=== PATIENT | female | born 1950 | race Caucasian/White ===

== ENCOUNTER 2018-05-25 16:21 | Emergency (ER) | payer MEDICARE, OTHER ==
[2018-05-25 17:05] LABS: BASOPHILS % (AUTO) 1.3 % (0.0-5.0); EOSINOPHILS % (AUTO) 0.6 % (0.0-8.0); HEMATOCRIT 39.3 % (36-48); LYMPHOCYTES % (AUTO) 34.2 % (21.0-51.0); MEAN CORPUSCULAR HEMOGLOBIN 31.1 pg (27.0-33.0); MEAN CORPUSCULAR HGB CONC 34.3 g/dL (32.0-36.0); MEAN CORPUSCULAR VOLUME 90.7 fL (79-99); MONOCYTES % (AUTO) 9.8 % (3.0-13.0); NEUTROPHILS % (AUTO) 54.1 % (40.0-77.0); PLATELET COUNT (AUTO) 221 K/uL (130-400); RED BLOOD CELL COUNT(AUTO) 4.33 MIL/uL (4.00-5.50); RED CELL DISTRIBUTION WIDTH 12.9 % (11.0-15.5); WHITE BLOOD COUNT (AUTO) 7.4 K/uL (4.8-10.8)
[2018-05-25 17:24] LABS: CREATININE 0.9 mg/dL (0.5-1.5); POTASSIUM 4.4 mmol/L (3.5-5.1)
[2018-05-25 17:27] LABS: INR 0.95 (0.85-1.15); PARTIAL THROMBOPLASTIN TIME 25.9 SEC (26.3-35.5)
[2018-05-25 17:29] LABS: ALBUMIN 4.1 g/dL (3.5-5.0); BILIRUBIN,TOTAL 0.3 mg/dL (0.2-1.0); TOTAL PROTEIN, SERUM 7.9 g/dL (6.0-8.3)
[2018-05-25 17:59] LABS: CREATINE KINASE, TOTAL 116 U/L (21-232); MYOGLOBIN 37 ng/mL (10-92); TROPONIN I < 0.04 ng/mL (0.00-0.06)
== END 2018-05-25 18:20 | disposition home or self-care (01) ==
LOC: EDH 16:21
DX: R07.89 Other chest pain (principal); E78.5 Hyperlipidemia, unspecified; F41.9 Anxiety disorder, unspecified; Z88.0 Allergy status to penicillin
CPT/HCPCS: 36415; 71045; 80053; 82550; 83874; 84484; 85025; 85610; 85730; 93005

== ENCOUNTER → 2018-12-24 | Outpatient (CLI) | payer OTHER | END | disposition home or self-care (01) | LOC: RAH 09:08 | PROVIDERS: ATTEND Internal Medicine Cardiovascular Disease | DX: Z13.6 Encounter for screening for cardiovascular disorders (principal) | CPT/HCPCS: 75571 ==